=== PATIENT | female | born 1980 | race Caucasian/White ===

== ENCOUNTER → 2019-04-16 | Outpatient (REF) | payer OTHER | LOC: M LAB LCGH 12:27 | PROVIDERS: ATTEND Obstetrics & Gynecology | DX: Z12.4 Encounter for screening for malignant neoplasm of cervix (principal); Z11.3 Encounter for screening for infections with a predominantly sexual mode of transmission | CPT/HCPCS: 87624; G0123 ==

== ENCOUNTER → 2020-12-09 | Outpatient (CLI) | payer OTHER ==
[~2020-12-09] MED LIST: PROHANCE 279.3MG/ML 15ML VIAL As Ordered ONE
--- NOTE | 2020-12-10 09:00 | REP ---
INDICATION: HIGH RISK FOR BREAST CA. COMPARISON: Mammogram 07/07/2020. TECHNIQUE: Three [facility] MRI imaging was performed with a dedicated breast coil. Axial, coronal, and sagittal T1 and T2 weighted scans were obtained with and without fat saturation in the usual fashion. The study includes dynamically acquired post gadolinium-enhanced imaging with image subtraction. Maximum intensity projection and multi planar reformation imaging is included as well. This study is interpreted with the aid of [employer]eg[employer], an FDA approved computer aided detection (CAD) software program, on a dedicated breast MRI workstation. The gadolinium enhancement dose is 13 mL of intravenous ProHance. FINDINGS: There is moderate amount of fibroglandular tissue bilaterally. No axillary adenopathy is seen. Multiple subcentimeter cysts are scattered bilaterally. There is mild background parenchymal enhancement bilaterally. No suspicious enhancing mass or morphologic abnormality is seen. IMPRESSION: BI-RADS category 2, benign bilateral breast MRI. Scattered subcentimeter cysts are present. There is no suspicious enhancing mass or morphologic abnormality. <Electronically signed by Salvador Johnson > 12/10/20 0856
== END ==
LOC: M RAD 16:37
PROVIDERS: ATTEND Surgery
DX: N60.11 Diffuse cystic mastopathy of right breast (principal); N60.12 Diffuse cystic mastopathy of left breast; Z91.89 Other specified personal risk factors, not elsewhere classified
CPT/HCPCS: A9576; C8908

== ENCOUNTER 2021-04-16 08:28 | Emergency (ER) | payer OTHER ==
[~2021-04-16] VITALS: Ht 160 cm; Wt 70.5 kg
[2021-04-16 09:35] VITALS: BP 101/64
== END 2021-04-16 09:32 | disposition home or self-care (01) ==
LOC: M ED 08:28
DX: S63.502A Unspecified sprain of left wrist, initial encounter (principal); Y92.9 Unspecified place or not applicable; Y93.F9 Activity, other caregiving; Y99.0 Civilian activity done for income or pay; Z88.2 Allergy status to sulfonamides

== ENCOUNTER → 2021-07-09 | Outpatient (CLI) | payer OTHER | LOC: M WHC 15:21 | PROVIDERS: ATTEND Surgery | DX: Z91.89 Other specified personal risk factors, not elsewhere classified (principal); Z78.0 Asymptomatic menopausal state; Z80.3 Family history of malignant neoplasm of breast ==

== ENCOUNTER → 2021-12-23 | Outpatient (CLI) | payer OTHER ==
[~2021-12-23] MED LIST changes: -PROHANCE 279.3MG/ML 15ML VIAL As Ordered ONE; +PROHANCE 279.3MG/ML 15ML VIAL ONE
== END ==
LOC: M PLAIMG 07:48
PROVIDERS: ATTEND Surgery
DX: Z91.89 Other specified personal risk factors, not elsewhere classified (principal); Z15.01 Genetic susceptibility to malignant neoplasm of breast
CPT/HCPCS: A9576; C8908

== ENCOUNTER → 2022-05-18 | Outpatient (CLI) | payer OTHER | LOC: M WHC 07:38 | PROVIDERS: ATTEND Nurse Practitioner Women's Health | DX: N63.11 Unspecified lump in the right breast, upper outer quadrant (principal); Z15.01 Genetic susceptibility to malignant neoplasm of breast; Z97.8 Presence of other specified devices | CPT/HCPCS: 77065; 77066; G0279 ==

== ENCOUNTER → 2023-02-02 | Outpatient (CLI) | payer OTHER ==
[~2023-02-02] MED LIST changes: +PROHANCE 279.3MG/ML 15ML VIAL As Ordered ONE; -PROHANCE 279.3MG/ML 15ML VIAL ONE
== END ==
LOC: M RAD 15:43
PROVIDERS: ATTEND Nurse Practitioner Women's Health
DX: Z15.01 Genetic susceptibility to malignant neoplasm of breast (principal); Z91.89 Other specified personal risk factors, not elsewhere classified; Z80.3 Family history of malignant neoplasm of breast
CPT/HCPCS: A9576; C8908

== ENCOUNTER → 2023-05-19 | Outpatient (CLI) | payer OTHER | LOC: M WHC 12:43 | PROVIDERS: ATTEND Nurse Practitioner Women's Health | DX: Z12.31 Encounter for screening mammogram for malignant neoplasm of breast (principal) ==

== ENCOUNTER → 2025-02-17 | Outpatient (CLI) | payer OTHER ==
[~2025-02-17] MED LIST changes: -PROHANCE 279.3MG/ML 15ML VIAL As Ordered ONE; +PROHANCE 279.3MG/ML 15ML VIAL ONE
== END ==
LOC: M PLAIMG 09:26
PROVIDERS: ATTEND Surgery
DX: Z15.01 Genetic susceptibility to malignant neoplasm of breast (principal); Z80.3 Family history of malignant neoplasm of breast; Z12.31 Encounter for screening mammogram for malignant neoplasm of breast